=== PATIENT | male | born 2000 | race Caucasian/White ===

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

== ENCOUNTER 2023-02-05 20:12 | Emergency (ER) | payer OTHER ==
[2023-02-05] MEDS ORDERED: Amoxicillin/Clavulanate K 875-125 MG Tab PO ONE (20:14)
[2023-02-05] MEDS ORDERED: Diphtheria,Pertussis(Acell),Tetanus Vaccine 0.5 ML Syringe IM ONE (21:41)
== END 2023-02-05 22:00 | disposition home or self-care (01) ==
LOC: JP.ED 20:12
DX: S61.552A Open bite of left wrist, initial encounter (principal); S51.851A Open bite of right forearm, initial encounter; Z23 Encounter for immunization; Z72.0 Tobacco use; W54.0XXA Bitten by dog, initial encounter
CPT/HCPCS: 90471; 90715; 99282; 99283; A9270

== ENCOUNTER 2024-10-27 11:15 | Emergency (ER) | payer OTHER, MEDICAID ==
[2024-10-27] MEDS: Lidocaine 1% 50 ML MDV INJECT ONE (11:38)
[2024-10-27] MEDS: Bacitracin Oint 1 GM U/D Packet TOP ONE (12:20)
== END 2024-10-27 12:29 | disposition home or self-care (01) ==
LOC: JP.ED 11:15
DX: S61.412A Laceration without foreign body of left hand, initial encounter (principal); F17.210 Nicotine dependence, cigarettes, uncomplicated; Z79.899 Other long term (current) drug therapy; W26.9XXA Contact with unspecified sharp object(s), initial encounter
CPT/HCPCS: 12001; 99282; J2003